=== PATIENT | female | born 1950 | race Caucasian/White ===

== ENCOUNTER 2021-07-28 06:41 | Inpatient (IN) ==
[2021-07-28] MEDS ORDERED: methylPREDNISolone 125 MG/2 ML VIAL IVP ONE (07:13)
[2021-07-28] MEDS ORDERED: Ipratropium/Albuterol Neb 3 ML IH ONE (07:13)
[2021-07-28 07:39] LABS: Basophils # 0.1 K/mcL (0.0-0.2); Basophils % 0.7 %; Eosinophils # 1.2 K/mcL (0.0-0.6); Eosinophils % 8.5 %; Hematocrit 41.7 % (35.3-44.9); Immature Granulocytes % 0.6 % (0-4); Lymphocytes # 1.3 K/mcL (0.6-4.6); Lymphocytes % 9.9 %; Mean Corpuscular HGB Conc 33.6 g/dL (31.6-35.5); Mean Corpuscular Hemoglobin 31.8 pg (28.0-33.3); Mean Corpuscular Volume 94.8 fL (83.0-100.0); Mean Platelet Volume 8.7 fL (9.4-12.4); Monocytes # 0.8 K/mcL (0.0-1.3); Monocytes % 6.1 %; Platelet Count 331 K/mcL (140-400); Red Cell Distribution Width 13.7 % (11.5-14.5); Segmented Neutrophils % 74.2 %; White Blood Count 13.5 K/mcL (4.3-11.1)
[2021-07-28 07:53] LABS: BUN/Creatinine Ratio 11 (6-26); Blood Urea Nitrogen 9 mg/dL (8-23); Calcium 8.8 mg/dL (8.6-10.3); Carbon Dioxide 25 mEq/L (23-29); Chloride 102 mEq/L (98-107); Glucose 110 mg/dL (70-105); Osmolality,Calculated 279 (280-300); Potassium 4.1 mEq/L (3.5-5.1); Sodium 135 mEq/L (136-145); eGFR For African Americans > 60 (> 60); eGFR For Non-African Americans > 60 (> 60)
[2021-07-28 07:54] LABS: Troponin I 0.03 ng/mL (< 0.04)
[2021-07-28] MEDS ORDERED: Naloxone 0.4 MG/ML INJ IVP PRN ×3 (13:02→14:25)
[2021-07-28] MEDS ORDERED: Ondansetron ODT 4 MG TAB.RAPDIS SL PRN (14:44)
[2021-07-28] MEDS ORDERED: Furosemide 20 MG TABLET PO PRN (14:45)
[2021-07-28] MEDS ORDERED: Nicotine 21 MG PATCH.TD24 TD SCH (15:00)
[2021-07-28] MEDS ORDERED: Ipratropium/Albuterol Neb 3 ML IH SCH (16:00)
[2021-07-28] MEDS ORDERED: Ranolazine 500 MG TAB.ER.12H PO SCH (21:00)
[2021-07-28] MEDS ORDERED: lisinopriL 10 MG TABLET PO SCH (21:00)
[2021-07-28] MEDS ORDERED: *HR* Ticagrelor 90 MG TABLET PO SCH (21:00)
[2021-07-28] MEDS ORDERED: Budesonide/Formoterol 160/4.5 1 PUFF INH IH SCH (22:00)
[2021-07-29] MEDS ORDERED: Acetaminophen 325 MG TABLET PO PRN ×2 (01:18→05:41)
[2021-07-29] MEDS ORDERED: NON-FORMULARY MEDICATION 1 EACH EACH (Atorvastatin Calcium [Lipitor] 80 MG Tablet) PO SCH (05:41)
[2021-07-29] MEDS ORDERED: Furosemide 20 MG TABLET PO PRN (05:41)
[2021-07-29] MEDS ORDERED: NON-FORMULARY MEDICATION 1 EACH EACH (Albuterol Sulfate 8.5 GM Hfa.Aer.Ad) IH PRN (05:41)
[2021-07-29] MEDS ORDERED: lisinopriL 10 MG TABLET PO SCH ×2 (05:41→09:00)
[2021-07-29] MEDS ORDERED: Ondansetron ODT 4 MG TAB.RAPDIS SL PRN ×2 (05:41)
[2021-07-29] MEDS ORDERED: Ipratropium 1 PUFF INHALER IH PRN (05:41)
[2021-07-29] MEDS ORDERED: *HR* Ticagrelor 90 MG TABLET PO SCH ×2 (05:41→09:00)
[2021-07-29] MEDS ORDERED: Naloxone 0.4 MG/ML INJ IVP PRN ×2 (05:41)
[2021-07-29] MEDS ORDERED: Ranolazine 500 MG TAB.ER.12H PO SCH ×2 (05:41→09:00)
[2021-07-29] MEDS: Aspirin Enteric Coated 81 MG Tablet PO SCH (08:28)
[2021-07-29] MEDS: Isosorbide MONOnitrate (24 HR) 60 MG TAB.ER.24H PO SCH (08:28)
[2021-07-29] MEDS: Ranolazine 500 MG TAB.ER.12H PO SCH ×2 (08:28→21:23)
[2021-07-29] MEDS: Metoprolol XL (24 HR) Succ 50 MG TAB.ER.24H PO SCH (08:29)
[2021-07-29] MEDS: *HR* Ticagrelor 90 MG TABLET PO SCH ×2 (08:29→21:23)
[2021-07-29] MEDS: Nicotine 21 MG PATCH.TD24 TD SCH (08:29)
[2021-07-29] MEDS: lisinopriL 10 MG TABLET PO SCH ×2 (08:29→21:22)
[2021-07-29 08:53] LABS: Basophils # 0.1 K/mcL (0.0-0.2); Basophils % 0.3 %; Hematocrit 45.4 % (35.3-44.9); Hemoglobin 14.8 g/dL (11.5-15.4); Immature Granulocytes % 0.4 % (0-4); Lymphocytes % 4.8 %; Mean Corpuscular HGB Conc 32.6 g/dL (31.6-35.5); Mean Corpuscular Volume 98.1 fL (83.0-100.0); Mean Platelet Volume 9.1 fL (9.4-12.4); Monocytes # 0.8 K/mcL (0.0-1.3); Monocytes % 3.9 %; Neutrophils # 17.9 K/mcL (1.6-8.9); Platelet Count 334 K/mcL (140-400); Red Blood Count 4.63 M/mcL (3.82-4.97); Red Cell Distribution Width 14.3 % (11.5-14.5); Segmented Neutrophils % 90.6 %; White Blood Count 19.7 K/mcL (4.3-11.1)
[2021-07-29] MEDS ORDERED: Isosorbide MONOnitrate (24 HR) 60 MG TAB.ER.24H PO SCH ×2 (09:00)
[2021-07-29] MEDS ORDERED: Furosemide 20 MG TABLET PO SCH (09:00)
[2021-07-29] MEDS ORDERED: predniSONE 20 MG TABLET PO SCH (09:00)
[2021-07-29] MEDS ORDERED: NON-FORMULARY MEDICATION 1 EACH EACH (Fluticasone/Umeclidin/Vilanter [Trelegy Ellipta 100- IH SCH (09:00)
[2021-07-29] MEDS ORDERED: Aspirin 81 MG TAB.CHEW PO SCH ×2 (09:00)
[2021-07-29 09:04] LABS: BUN/Creatinine Ratio 20 (6-26); Blood Urea Nitrogen 16 mg/dL (8-23); Calcium 9.1 mg/dL (8.6-10.3); Carbon Dioxide 24 mEq/L (23-29); Chloride 101 mEq/L (98-107); Glucose 128 mg/dL (70-105); Magnesium 2.1 mg/dL (1.6-2.6); Osmolality,Calculated 279 (280-300); Sodium 133 mEq/L (136-145); eGFR For African Americans > 60 (> 60); eGFR For Non-African Americans > 60 (> 60)
[2021-07-29] MEDS: Budesonide/Formoterol 160/4.5 1 PUFF INH IH SCH ×2 (09:57→22:27)
[2021-07-30 07:14] VITALS: BP 143/84; PULSE 58; TEMP 97.4
[2021-07-30 08:24] LABS: Basophils % 0.3 %; Eosinophils % 0.2 %; Hematocrit 39.1 % (35.3-44.9); Hemoglobin 12.9 g/dL (11.5-15.4); Immature Granulocytes % 0.3 % (0-4); Lymphocytes # 1.6 K/mcL (0.6-4.6); Lymphocytes % 12.1 %; Mean Corpuscular Hemoglobin 31.6 pg (28.0-33.3); Mean Corpuscular Volume 95.8 fL (83.0-100.0); Mean Platelet Volume 9.2 fL (9.4-12.4); Monocytes # 0.9 K/mcL (0.0-1.3); Monocytes % 6.5 %; Neutrophils # 10.8 K/mcL (1.6-8.9); Platelet Count 346 K/mcL (140-400); Red Blood Count 4.08 M/mcL (3.82-4.97); Red Cell Distribution Width 14.3 % (11.5-14.5); Segmented Neutrophils % 80.6 %; White Blood Count 13.4 K/mcL (4.3-11.1)
[2021-07-30 08:45] LABS: Alanine Aminotransferase 26 Units/L (7-52); Albumin 3.6 g/dL (3.5-5.7); Albumin/Globulin Ratio 1.2 (1.1-2.2); Alkaline Phosphatase 58 Units/L (34-104); Aspartate Amino Transferase 25 Units/L (13-39); BUN/Creatinine Ratio 27 (6-26); Bilirubin,Total 0.7 mg/dL (0.3-1.0); Blood Urea Nitrogen 20 mg/dL (8-23); Calcium 8.7 mg/dL (8.6-10.3); Carbon Dioxide 25 mEq/L (23-29); Chloride 103 mEq/L (98-107); Globulin 2.9 g/dL (2.4-3.5); Glucose 94 mg/dL (70-105); Osmolality,Calculated 284 (280-300); Potassium 4.6 mEq/L (3.5-5.1); Sodium 136 mEq/L (136-145); Total Protein 6.5 g/dL (6.4-8.9); eGFR For African Americans > 60 (> 60); eGFR For Non-African Americans > 60 (> 60)
[2021-07-30] MEDS: Budesonide/Formoterol 160/4.5 1 PUFF INH IH SCH (09:18)
[2021-07-30] MEDS: Aspirin Enteric Coated 81 MG Tablet PO SCH (09:21)
[2021-07-30] MEDS: lisinopriL 10 MG TABLET PO SCH (09:21)
[2021-07-30 09:22] VITALS: RESP 18; O2SAT 98
[2021-07-30] MEDS: *HR* Ticagrelor 90 MG TABLET PO SCH (09:22)
[2021-07-30] MEDS: Isosorbide MONOnitrate (24 HR) 60 MG TAB.ER.24H PO SCH (09:22)
[2021-07-30] MEDS: Metoprolol XL (24 HR) Succ 50 MG TAB.ER.24H PO SCH (09:22)
[2021-07-30] MEDS: Nicotine 21 MG PATCH.TD24 TD SCH (09:22)
[2021-07-30] MEDS: Ranolazine 500 MG TAB.ER.12H PO SCH (09:22)
== END 2021-07-30 13:32 | disposition home or self-care (01) | DRG 189 ==
LOC: EMEROOPIK 06:41 → INPPIK 06:41
PROVIDERS: ADMIT Internal Medicine; ATTEND Internal Medicine